=== PATIENT | male | born 1940 | race Caucasian/White ===

== ENCOUNTER 2016-07-24 10:00 | Inpatient (IN) | payer MEDICARE, OTHER ==
[~2016-07-24] VITALS: Ht 182.9 cm; Wt 159.3 kg
[~2016-07-24 10:00] MED LIST: ASPIRIN 81 MG CHEW TAB PO SCH
[2016-07-24] MEDS ORDERED: ACETAMINOPHEN 325 MG TAB PO PRN (14:25)
[2016-07-24] MEDS ORDERED: GLUCAGON 1 MG VIAL IM PRN ×2 (14:30→17:20)
[2016-07-24] MEDS ORDERED: DEXTROSE 50% SYRINGE 50 ML IV PRN ×2 (14:30→17:20)
[2016-07-24 14:45] VITALS: Ht 182.9 cm; Wt 159.3 kg
[2016-07-24] MEDS: DUONEB INH SCH ×3 (14:56→23:00)
[2016-07-24 15:01] VITALS: RESP 18
[2016-07-24 15:54] VITALS: BP_SYST 125; BP_SYST 139; RESP 18; TEMP 97.9
[2016-07-24] MEDS: AZITHROMYCIN 500 MG in SODIUM CHLORIDE 0.9% 250 ML IV SCH (16:24)
[2016-07-24] MEDS ORDERED: TUSSIONEX SUSP UDC PO PRN (17:20)
[2016-07-24] MEDS: CITALOPRAM 20 MG TAB PO SCH (17:22)
[2016-07-24] MEDS: FAMOTIDINE 20 MG TAB PO SCH (17:23)
[2016-07-24] MEDS: METOPROLOL XL 50 MG TAB PO SCH (17:24)
[2016-07-24] MEDS: CEFTRIAXONE 1 GM in SODIUM CHLORIDE 0.9% 50 ML IV SCH (17:55)
[2016-07-24] MEDS: NITROGLYCERIN 2% OINT 1 INCH PKT TOPICAL SCH ×2 (17:56→23:35)
[2016-07-24] MEDS: METHYLPRED SOD SUCC 125 MG/2 ML VIAL IV SCH ×2 (17:56→23:36)
[2016-07-24] MEDS: NEB-BUDESONIDE 0.5 MG INH SCH (18:47)
[2016-07-24] MEDS: NEB-BROVANA 15 MCG/2 ML INH SCH (18:47)
[2016-07-24 19:01] VITALS: BP_SYST 133; RESP 20; TEMP 98
[2016-07-24] MEDS: MAG OXIDE 400 MG TAB PO SCH (20:14)
[2016-07-24] MEDS: Atorvastatin 20 MG TAB PO SCH (20:14)
[2016-07-24] MEDS: KCL CR 10 MEQ TAB PO SCH (20:14)
[2016-07-24] MEDS: PREGABALIN 100 MG CAPSULE PO SCH (20:14)
[2016-07-24] MEDS: LEVEMIR INSULIN SUBQ SCH (20:15)
[2016-07-24 23:10] VITALS: BP_SYST 134; RESP 21; TEMP 98
[2016-07-25] VITALS (8 sets, daily range): BP systolic 98–171; RESP 18–20; TEMP 97.2–98.2
[2016-07-25] MEDS: ACETAMINOPHEN 325 MG TAB PO PRN ×2 (03:47→23:44)
[2016-07-25] MEDS ORDERED: SALINE FLUSH 10 ML FLUSH PRN (05:35)
[2016-07-25] MEDS: NITROGLYCERIN 2% OINT 1 INCH PKT TOPICAL SCH ×3 (05:43→17:09)
[2016-07-25] MEDS: METHYLPRED SOD SUCC 125 MG/2 ML VIAL IV SCH ×3 (05:43→17:09)
[2016-07-25] MEDS: SODIUM CHLORIDE 0.9% FLUSH BAG 500 ML IV SCH (05:44)
[2016-07-25] MEDS: NEB-BUDESONIDE 0.5 MG INH SCH ×2 (06:32→18:12)
[2016-07-25] MEDS: NEB-BROVANA 15 MCG/2 ML INH SCH ×2 (06:32→18:12)
[2016-07-25] MEDS: DUONEB INH SCH ×5 (06:32→23:37)
[2016-07-25] MEDS ORDERED: TORSEMIDE 20 MG TAB PO SCH (09:00)
[2016-07-25] MEDS: CEFTRIAXONE 1 GM in SODIUM CHLORIDE 0.9% 50 ML IV SCH (09:03)
[2016-07-25] MEDS: FAMOTIDINE 20 MG TAB PO SCH (09:03)
[2016-07-25] MEDS: SALINE FLUSH 10 ML FLUSH SCH ×2 (09:03→20:00)
[2016-07-25] MEDS: KCL CR 10 MEQ TAB PO SCH ×2 (09:03→21:03)
[2016-07-25] MEDS: PREGABALIN 100 MG CAPSULE PO SCH ×2 (09:03→21:03)
[2016-07-25] MEDS: NYSTATIN 500,000 UNITS/5 ML SUSP SWISH.SWAL SCH ×4 (09:03→21:02)
[2016-07-25] MEDS: MAG OXIDE 400 MG TAB PO SCH ×2 (09:03→21:03)
[2016-07-25] MEDS: CITALOPRAM 20 MG TAB PO SCH (09:04)
[2016-07-25] MEDS: METOPROLOL XL 50 MG TAB PO SCH (09:04)
[2016-07-25] MEDS: ASPIRIN EC 81 MG TAB PO SCH (09:14)
[2016-07-25] MEDS: AZITHROMYCIN 500 MG in SODIUM CHLORIDE 0.9% 250 ML IV SCH (09:50)
[2016-07-25] MEDS: Atorvastatin 20 MG TAB PO SCH (21:03)
[2016-07-25] MEDS: LEVEMIR INSULIN SUBQ SCH (21:14)
[2016-07-26] VITALS (9 sets, daily range): BP systolic 125–171; RESP 16–20; TEMP 97.3–98.1
[2016-07-26] MEDS: SODIUM CHLORIDE 0.9% FLUSH BAG 500 ML IV SCH (05:37)
[2016-07-26] MEDS: NITROGLYCERIN 2% OINT 1 INCH PKT TOPICAL SCH ×2 (06:38)
[2016-07-26] MEDS: METHYLPRED SOD SUCC 125 MG/2 ML VIAL IV SCH ×3 (06:38→21:41)
[2016-07-26] MEDS: NEB-BROVANA 15 MCG/2 ML INH SCH ×2 (07:03→17:08)
[2016-07-26] MEDS: NEB-BUDESONIDE 0.5 MG INH SCH ×2 (07:03→17:08)
[2016-07-26] MEDS: DUONEB INH SCH ×5 (07:03→23:25)
[2016-07-26] MEDS: SALINE FLUSH 10 ML FLUSH SCH ×2 (09:06→21:40)
[2016-07-26] MEDS: METOPROLOL XL 50 MG TAB PO SCH ×2 (09:07→21:41)
[2016-07-26] MEDS: NYSTATIN 500,000 UNITS/5 ML SUSP SWISH.SWAL SCH ×4 (09:07→21:49)
[2016-07-26] MEDS: MAG OXIDE 400 MG TAB PO SCH ×2 (09:07→21:41)
[2016-07-26] MEDS: KCL CR 10 MEQ TAB PO SCH ×2 (09:07→21:42)
[2016-07-26] MEDS: PREGABALIN 100 MG CAPSULE PO SCH ×2 (09:07→21:42)
[2016-07-26] MEDS: CITALOPRAM 20 MG TAB PO SCH (09:07)
[2016-07-26] MEDS: FAMOTIDINE 20 MG TAB PO SCH (09:07)
[2016-07-26] MEDS: CEFTRIAXONE 1 GM in SODIUM CHLORIDE 0.9% 50 ML IV SCH (09:08)
[2016-07-26] MEDS: ASPIRIN EC 81 MG TAB PO SCH (09:08)
[2016-07-26] MEDS: TORSEMIDE 20 MG TAB PO SCH ×2 (09:08→21:42)
[2016-07-26] MEDS ORDERED: MISSING DOSE XX ONE (09:20)
[2016-07-26] MEDS: AZITHROMYCIN 500 MG in SODIUM CHLORIDE 0.9% 250 ML IV SCH (10:20)
[2016-07-26] MEDS: ISOSORBIDE MONO 60 MG TAB PO SCH (10:20)
[2016-07-26] MEDS: WARFARIN 4 MG TAB PO SCH (16:30)
[2016-07-26] MEDS ORDERED: LEVEMIR INSULIN SUBQ SCH (21:00)
[2016-07-26] MEDS: Atorvastatin 20 MG TAB PO SCH (21:42)
[2016-07-27 03:08] VITALS: BP_SYST 152; TEMP 98.3
[2016-07-27 03:09] VITALS: RESP 20
[2016-07-27] MEDS: ACETAMINOPHEN 325 MG TAB PO PRN (03:17)
[2016-07-27] MEDS: SODIUM CHLORIDE 0.9% FLUSH BAG 500 ML IV SCH (05:41)
[2016-07-27 07:14] VITALS: BP_SYST 157; RESP 18; TEMP 98.3
[2016-07-27] MEDS: DUONEB INH SCH ×3 (07:27→16:24)
[2016-07-27] MEDS: NEB-BUDESONIDE 0.5 MG INH SCH (07:27)
[2016-07-27] MEDS: NEB-BROVANA 15 MCG/2 ML INH SCH (07:27)
[2016-07-27] MEDS: SALINE FLUSH 10 ML FLUSH SCH (08:56)
[2016-07-27] MEDS: FAMOTIDINE 20 MG TAB PO SCH (08:56)
[2016-07-27] MEDS: ASPIRIN EC 81 MG TAB PO SCH (08:57)
[2016-07-27] MEDS: ISOSORBIDE MONO 60 MG TAB PO SCH (08:57)
[2016-07-27] MEDS: MAG OXIDE 400 MG TAB PO SCH (08:57)
[2016-07-27] MEDS: PREGABALIN 100 MG CAPSULE PO SCH (08:57)
[2016-07-27] MEDS: METOPROLOL XL 50 MG TAB PO SCH (08:57)
[2016-07-27] MEDS: TORSEMIDE 20 MG TAB PO SCH (08:57)
[2016-07-27] MEDS: KCL CR 10 MEQ TAB PO SCH (08:57)
[2016-07-27] MEDS: NYSTATIN 500,000 UNITS/5 ML SUSP SWISH.SWAL SCH ×3 (08:57→16:51)
[2016-07-27] MEDS: CITALOPRAM 20 MG TAB PO SCH (08:57)
[2016-07-27] MEDS: CEFTRIAXONE 1 GM in SODIUM CHLORIDE 0.9% 50 ML IV SCH (08:58)
[2016-07-27] MEDS: METHYLPRED SOD SUCC 125 MG/2 ML VIAL IV SCH (08:58)
[2016-07-27 10:44] VITALS: BP_SYST 136; RESP 20; TEMP 98.1
[2016-07-27 14:42] VITALS: BP_SYST 147; RESP 20; TEMP 98.6
[2016-07-27 14:45] VITALS: BP_SYST 147; RESP 20; TEMP 98.6
[2016-07-27] MEDS: WARFARIN 4 MG TAB PO SCH (15:59)
== END 2016-07-27 18:22 | disposition home health service (06) | DRG 191 ==
LOC: ENRESERVTM → ENRESERVDT → ER 10:00 → EMR 12:48 → ENPENDDIS 12:48 → PCU2 14:19 → MC2 07-25 15:16 → PCU2 07-25 15:20 → 3NT 07-25 16:31
PROVIDERS: ADMIT Internal Medicine; ATTEND Internal Medicine
DX: J44.1 Chronic obstructive pulmonary disease with (acute) exacerbation (principal); I50.42 Chronic combined systolic (congestive) and diastolic (congestive) heart failure; Z68.42 Body mass index [BMI] 45.0-49.9, adult; I51.7 Cardiomegaly; E11.649 Type 2 diabetes mellitus with hypoglycemia without coma; Z79.4 Long term (current) use of insulin; Z79.82 Long term (current) use of aspirin; I25.10 Atherosclerotic heart disease of native coronary artery without angina pectoris; Z95.1 Presence of aortocoronary bypass graft; Z79.01 Long term (current) use of anticoagulants; I11.0 Hypertensive heart disease with heart failure; I48.2 Chronic atrial fibrillation; E66.01 Morbid (severe) obesity due to excess calories; F41.9 Anxiety disorder, unspecified; F32.9 Major depressive disorder, single episode, unspecified
CPT/HCPCS: 36415; 71010; 80048; 80053; 82553; 82947; 83735; 83880; 84484; 85025; 85610; 85730; 93005; 94640; 94667; 94668; 94799

== ENCOUNTER 2016-08-07 11:11 | Inpatient (IN) | payer MEDICARE, OTHER ==
[~2016-08-07] VITALS: Ht 188 cm; Wt 137.4 kg
[2016-08-07] MEDS ORDERED: Furosemide 40 MG/4 ML VIAL ONE (11:50)
[2016-08-07] MEDS ORDERED: GLUCAGON 1 MG VIAL IM PRN (13:30)
[2016-08-07] MEDS ORDERED: DEXTROSE 50% SYRINGE 50 ML IV PRN (13:30)
[2016-08-07] MEDS: METHYLPRED SOD SUCC 125 MG/2 ML VIAL IV SCH ×3 (13:30→23:55)
[2016-08-07 15:17] VITALS: RESP 18
[2016-08-07] MEDS: DUONEB INH SCH ×3 (15:19→22:59)
[2016-08-07] MEDS ORDERED: WARFARIN 4 MG TAB PO SCH (16:00)
[2016-08-07 16:01] VITALS: BP_SYST 114; RESP 20; TEMP 97.8
[2016-08-07] MEDS: FAMOTIDINE 20 MG TAB PO SCH (16:08)
[2016-08-07] MEDS: CITALOPRAM 20 MG TAB PO SCH (16:10)
[2016-08-07] MEDS: LISINOPRIL 10 MG TAB PO SCH (16:10)
[2016-08-07] MEDS: ASPIRIN EC 81 MG TAB PO SCH (16:10)
[2016-08-07] MEDS: ISOSORBIDE MONO 60 MG TAB PO SCH (16:11)
[2016-08-07] MEDS: Furosemide 100 MG/10 ML VIAL IV SCH ×2 (16:20→23:55)
[2016-08-07 16:52] VITALS: Ht 188 cm; Wt 137.4 kg
[2016-08-07] MEDS: NEB-BROVANA 15 MCG/2 ML INH SCH (18:12)
[2016-08-07 19:25] VITALS: BP_SYST 93; RESP 20; TEMP 99.2
[2016-08-07] MEDS ORDERED: KCL CR 10 MEQ TAB PO SCH (21:00)
[2016-08-07] MEDS: LEVEMIR INSULIN SUBQ SCH (21:00)
[2016-08-07] MEDS: Atorvastatin 20 MG TAB PO SCH (21:05)
[2016-08-07] MEDS: MAG OXIDE 400 MG TAB PO SCH (21:05)
[2016-08-07] MEDS: METOPROLOL XL 50 MG TAB PO SCH (21:05)
[2016-08-07] MEDS ORDERED: SALINE FLUSH 10 ML FLUSH PRN (21:15)
[2016-08-07 23:20] VITALS: BP_SYST 96; RESP 20; TEMP 98.3
[2016-08-08 03:46] VITALS: BP_SYST 105; RESP 20; TEMP 98.1
[2016-08-08] MEDS: SODIUM CHLORIDE 0.9% FLUSH BAG 500 ML IV SCH (05:41)
[2016-08-08] MEDS: NEB-BROVANA 15 MCG/2 ML INH SCH ×2 (06:24→18:33)
[2016-08-08] MEDS: DUONEB INH SCH ×4 (06:24→23:09)
[2016-08-08] MEDS: METHYLPRED SOD SUCC 125 MG/2 ML VIAL IV SCH (06:42)
[2016-08-08 07:21] VITALS: BP_SYST 122; RESP 16; TEMP 98.2
[2016-08-08] MEDS: Furosemide 100 MG/10 ML VIAL IV SCH ×2 (08:43→18:48)
[2016-08-08] MEDS: SALINE FLUSH 10 ML FLUSH SCH ×2 (08:43→21:02)
[2016-08-08] MEDS: MAG OXIDE 400 MG TAB PO SCH ×2 (08:44→20:55)
[2016-08-08] MEDS: CITALOPRAM 20 MG TAB PO SCH (08:44)
[2016-08-08] MEDS: ISOSORBIDE MONO 60 MG TAB PO SCH (08:44)
[2016-08-08] MEDS: ASPIRIN EC 81 MG TAB PO SCH (08:44)
[2016-08-08] MEDS: METOPROLOL XL 50 MG TAB PO SCH ×2 (08:44→20:55)
[2016-08-08] MEDS: LISINOPRIL 10 MG TAB PO SCH (08:44)
[2016-08-08] MEDS: FAMOTIDINE 20 MG TAB PO SCH (08:44)
[2016-08-08] MEDS: ACETAMINOPHEN 325 MG TAB PO PRN (08:50)
[2016-08-08] MEDS: TUSSIONEX SUSP UDC PO SCH ×2 (11:12→20:59)
[2016-08-08] MEDS: NYSTATIN 500,000 UNITS/5 ML SUSP SWISH.SWAL SCH ×4 (11:12→21:01)
[2016-08-08 11:13] VITALS: BP_SYST 121; RESP 16; TEMP 98
[2016-08-08 15:20] VITALS: BP_SYST 117; RESP 16; TEMP 97.1
[2016-08-08 19:39] VITALS: BP_SYST 120; RESP 20; TEMP 98.1
[2016-08-08] MEDS: Atorvastatin 20 MG TAB PO SCH (20:55)
[2016-08-08] MEDS ORDERED: METHYLPRED SOD SUCC 125 MG/2 ML VIAL IV SCH (21:00)
[2016-08-08] MEDS: LEVEMIR INSULIN SUBQ SCH (21:24)
[2016-08-09] VITALS (7 sets, daily range): BP systolic 118–141; RESP 16–20; TEMP 97.1–98.3
[2016-08-09] MEDS: Furosemide 100 MG/10 ML VIAL IV SCH ×4 (00:23→23:30)
[2016-08-09] MEDS: SODIUM CHLORIDE 0.9% FLUSH BAG 500 ML IV SCH (05:19)
[2016-08-09] MEDS: NEB-BROVANA 15 MCG/2 ML INH SCH ×2 (06:45→19:13)
[2016-08-09] MEDS: DUONEB INH SCH ×4 (06:45→23:40)
[2016-08-09] MEDS: TUSSIONEX SUSP UDC PO SCH ×2 (09:01→20:33)
[2016-08-09] MEDS: CITALOPRAM 20 MG TAB PO SCH (09:02)
[2016-08-09] MEDS: ISOSORBIDE MONO 60 MG TAB PO SCH (09:02)
[2016-08-09] MEDS: NYSTATIN 500,000 UNITS/5 ML SUSP SWISH.SWAL SCH ×4 (09:02→20:33)
[2016-08-09] MEDS: FAMOTIDINE 20 MG TAB PO SCH (09:02)
[2016-08-09] MEDS: ASPIRIN EC 81 MG TAB PO SCH (09:02)
[2016-08-09] MEDS: METOPROLOL XL 50 MG TAB PO SCH ×2 (09:03→20:33)
[2016-08-09] MEDS: METOLAZONE 5 MG TAB PO SCH (09:03)
[2016-08-09] MEDS: SALINE FLUSH 10 ML FLUSH SCH ×2 (09:03→23:31)
[2016-08-09] MEDS: LISINOPRIL 10 MG TAB PO SCH (09:03)
[2016-08-09] MEDS: MAG OXIDE 400 MG TAB PO SCH ×2 (09:03→20:33)
[2016-08-09] MEDS: Atorvastatin 20 MG TAB PO SCH (20:33)
[2016-08-09] MEDS: LEVEMIR INSULIN SUBQ SCH (20:34)
[2016-08-10] MEDS: SODIUM CHLORIDE 0.9% FLUSH BAG 500 ML IV SCH (02:53)
[2016-08-10 04:03] VITALS: BP_SYST 111; RESP 20; TEMP 98
[2016-08-10 07:39] VITALS: BP_SYST 144; RESP 20; TEMP 97.2
[2016-08-10] MEDS: NEB-BROVANA 15 MCG/2 ML INH SCH ×2 (07:51→18:29)
[2016-08-10] MEDS: DUONEB INH SCH ×4 (07:51→22:44)
[2016-08-10] MEDS ORDERED: MISSING DOSE XX ONE (08:25)
[2016-08-10] MEDS: SALINE FLUSH 10 ML FLUSH SCH ×2 (08:29→20:33)
[2016-08-10] MEDS: METOLAZONE 5 MG TAB PO SCH (08:29)
[2016-08-10] MEDS: Furosemide 100 MG/10 ML VIAL IV SCH ×2 (08:29→15:24)
[2016-08-10] MEDS: ASPIRIN EC 81 MG TAB PO SCH (08:29)
[2016-08-10] MEDS: METOPROLOL XL 50 MG TAB PO SCH ×2 (08:30→20:32)
[2016-08-10] MEDS: MAG OXIDE 400 MG TAB PO SCH ×2 (08:30→20:32)
[2016-08-10] MEDS: CITALOPRAM 20 MG TAB PO SCH (08:30)
[2016-08-10] MEDS: FAMOTIDINE 20 MG TAB PO SCH (08:30)
[2016-08-10] MEDS: ISOSORBIDE MONO 60 MG TAB PO SCH (08:30)
[2016-08-10] MEDS: NYSTATIN 500,000 UNITS/5 ML SUSP SWISH.SWAL SCH ×4 (08:30→20:32)
[2016-08-10] MEDS: LISINOPRIL 10 MG TAB PO SCH (08:30)
[2016-08-10] MEDS: TUSSIONEX SUSP UDC PO SCH ×2 (08:33→20:33)
[2016-08-10] MEDS: KCL CR 10 MEQ TAB PO SCH ×3 (08:33→20:31)
[2016-08-10 11:15] VITALS: BP_SYST 121; RESP 20; TEMP 97.8
[2016-08-10 15:35] VITALS: BP_SYST 105; RESP 20; TEMP 97.3
[2016-08-10 19:34] VITALS: BP_SYST 106; RESP 20; TEMP 98.7
[2016-08-10] MEDS: Atorvastatin 20 MG TAB PO SCH (20:32)
[2016-08-10] MEDS: LEVEMIR INSULIN SUBQ SCH (20:56)
[2016-08-10 23:01] VITALS: BP_SYST 142; RESP 22; TEMP 97.5
[2016-08-11] MEDS: Furosemide 100 MG/10 ML VIAL IV SCH ×3 (01:00→17:38)
[2016-08-11] MEDS: ACETAMINOPHEN 325 MG TAB PO PRN ×2 (04:23→20:54)
[2016-08-11 04:47] VITALS: BP_SYST 129; RESP 20; TEMP 98.5
[2016-08-11] MEDS: SODIUM CHLORIDE 0.9% FLUSH BAG 500 ML IV SCH (06:00)
[2016-08-11] MEDS: NEB-BROVANA 15 MCG/2 ML INH SCH ×2 (06:52→19:44)
[2016-08-11] MEDS: DUONEB INH SCH ×4 (06:52→23:06)
[2016-08-11 07:17] VITALS: BP_SYST 141; RESP 20; TEMP 98
[2016-08-11] MEDS: SALINE FLUSH 10 ML FLUSH SCH ×2 (09:11→22:44)
[2016-08-11] MEDS: NYSTATIN 500,000 UNITS/5 ML SUSP SWISH.SWAL SCH ×4 (09:12→22:43)
[2016-08-11] MEDS: LISINOPRIL 10 MG TAB PO SCH (09:13)
[2016-08-11] MEDS: METOLAZONE 5 MG TAB PO SCH (09:13)
[2016-08-11] MEDS: CITALOPRAM 20 MG TAB PO SCH (09:13)
[2016-08-11] MEDS: ISOSORBIDE MONO 60 MG TAB PO SCH (09:13)
[2016-08-11] MEDS: METOPROLOL XL 50 MG TAB PO SCH ×2 (09:13→20:35)
[2016-08-11] MEDS: ASPIRIN EC 81 MG TAB PO SCH (09:14)
[2016-08-11] MEDS: FAMOTIDINE 20 MG TAB PO SCH (09:14)
[2016-08-11] MEDS: MAG OXIDE 400 MG TAB PO SCH ×2 (09:14→20:35)
[2016-08-11] MEDS: TUSSIONEX SUSP UDC PO SCH ×2 (09:17→20:41)
[2016-08-11] MEDS: KCL CR 20 MEQ TAB PO SCH ×3 (09:18→22:44)
[2016-08-11 11:00] VITALS: BP_SYST 115; RESP 20
[2016-08-11] MEDS: GUAIFENESIN 10 ML UDC PO SCH ×3 (11:08→22:43)
[2016-08-11] MEDS: BENZONATATE 100 MG CAP PO SCH ×3 (11:08→22:44)
[2016-08-11 14:59] VITALS: BP_SYST 106; RESP 20; TEMP 97.9
[2016-08-11] MEDS: WARFARIN 4 MG TAB PO SCH (17:40)
[2016-08-11 19:25] VITALS: BP_SYST 115; RESP 20; TEMP 98.2
[2016-08-11] MEDS: Atorvastatin 20 MG TAB PO SCH (20:34)
[2016-08-11] MEDS: LEVEMIR INSULIN SUBQ SCH (22:43)
[2016-08-12] VITALS (8 sets, daily range): BP systolic 91–124; RESP 18–24; TEMP 97.5–98.3
[2016-08-12] MEDS: Furosemide 100 MG/10 ML VIAL IV SCH ×4 (00:44→16:34)
[2016-08-12] MEDS: SODIUM CHLORIDE 0.9% FLUSH BAG 500 ML IV SCH (05:37)
[2016-08-12] MEDS: DUONEB INH SCH ×4 (06:49→22:43)
[2016-08-12] MEDS: NEB-BROVANA 15 MCG/2 ML INH SCH ×2 (06:49→18:31)
[2016-08-12] MEDS: SALINE FLUSH 10 ML FLUSH SCH ×2 (08:24→20:24)
[2016-08-12] MEDS: TUSSIONEX SUSP UDC PO SCH ×2 (08:25→20:24)
[2016-08-12] MEDS: GUAIFENESIN 10 ML UDC PO SCH ×3 (08:25→20:24)
[2016-08-12] MEDS: KCL CR 20 MEQ TAB PO SCH ×3 (08:25→20:23)
[2016-08-12] MEDS: METOPROLOL XL 50 MG TAB PO SCH ×2 (08:25→20:23)
[2016-08-12] MEDS: NYSTATIN 500,000 UNITS/5 ML SUSP SWISH.SWAL SCH ×4 (08:25→20:24)
[2016-08-12] MEDS: ISOSORBIDE MONO 60 MG TAB PO SCH (08:26)
[2016-08-12] MEDS: METOLAZONE 5 MG TAB PO SCH (08:26)
[2016-08-12] MEDS: BENZONATATE 100 MG CAP PO SCH ×3 (08:26→20:23)
[2016-08-12] MEDS: FAMOTIDINE 20 MG TAB PO SCH (08:26)
[2016-08-12] MEDS: ASPIRIN EC 81 MG TAB PO SCH (08:26)
[2016-08-12] MEDS: LISINOPRIL 10 MG TAB PO SCH (08:26)
[2016-08-12] MEDS: MAG OXIDE 400 MG TAB PO SCH ×2 (08:26→20:23)
[2016-08-12] MEDS: CITALOPRAM 20 MG TAB PO SCH (08:26)
[2016-08-12] MEDS: ACETAMINOPHEN 325 MG TAB PO PRN ×2 (10:18→18:04)
[2016-08-12] MEDS ORDERED: MISSING DOSE XX ONE (13:30)
[2016-08-12] MEDS: WARFARIN 4 MG TAB PO SCH (16:33)
[2016-08-12] MEDS: Atorvastatin 20 MG TAB PO SCH (20:23)
[2016-08-12] MEDS: LEVEMIR INSULIN SUBQ SCH (20:40)
[2016-08-13 00:16] VITALS: BP_SYST 139
[2016-08-13 03:09] VITALS: BP_SYST 108; RESP 20; TEMP 98.3
[2016-08-13] MEDS: DUONEB INH SCH ×4 (06:45→22:50)
[2016-08-13] MEDS: NEB-BROVANA 15 MCG/2 ML INH SCH ×2 (06:45→18:29)
[2016-08-13 07:20] VITALS: BP_SYST 116; RESP 18; TEMP 98
[2016-08-13] MEDS: GUAIFENESIN 10 ML UDC PO SCH ×3 (09:11→20:37)
[2016-08-13] MEDS: NYSTATIN 500,000 UNITS/5 ML SUSP SWISH.SWAL SCH ×4 (09:11→20:37)
[2016-08-13] MEDS: Furosemide 100 MG/10 ML VIAL IV SCH ×2 (09:11→13:31)
[2016-08-13] MEDS: METOPROLOL XL 50 MG TAB PO SCH ×2 (09:12→20:38)
[2016-08-13] MEDS: BENZONATATE 100 MG CAP PO SCH ×3 (09:12→20:37)
[2016-08-13] MEDS: ISOSORBIDE MONO 60 MG TAB PO SCH (09:12)
[2016-08-13] MEDS: CITALOPRAM 20 MG TAB PO SCH (09:13)
[2016-08-13] MEDS: KCL CR 20 MEQ TAB PO SCH ×3 (09:13→20:37)
[2016-08-13] MEDS: LISINOPRIL 10 MG TAB PO SCH (09:13)
[2016-08-13] MEDS: SALINE FLUSH 10 ML FLUSH SCH (09:13)
[2016-08-13] MEDS: ASPIRIN EC 81 MG TAB PO SCH (09:13)
[2016-08-13] MEDS: FAMOTIDINE 20 MG TAB PO SCH (09:13)
[2016-08-13] MEDS: METOLAZONE 5 MG TAB PO SCH (09:13)
[2016-08-13] MEDS: MAG OXIDE 400 MG TAB PO SCH ×2 (09:13→20:37)
[2016-08-13] MEDS: TUSSIONEX SUSP UDC PO SCH ×2 (09:20→20:37)
[2016-08-13] MEDS ORDERED: MISSING DOSE XX ONE (13:30)
[2016-08-13] MEDS: BUMETANIDE 1 MG TAB PO SCH ×2 (13:51→17:07)
[2016-08-13] MEDS: WARFARIN 4 MG TAB PO SCH (17:06)
[2016-08-13 19:30] VITALS: BP_SYST 122; RESP 20; TEMP 97.8
[2016-08-13] MEDS: Atorvastatin 20 MG TAB PO SCH (20:37)
[2016-08-13] MEDS: LEVEMIR INSULIN SUBQ SCH (20:42)
[2016-08-13 23:07] VITALS: BP_SYST 107; RESP 20; TEMP 97.5
[2016-08-13] MEDS: ACETAMINOPHEN 325 MG TAB PO PRN (23:16)
[2016-08-14 03:20] VITALS: BP_SYST 119; RESP 20; TEMP 97.4
[2016-08-14 07:16] VITALS: BP_SYST 110; RESP 18; TEMP 97.9
[2016-08-14] MEDS: DUONEB INH SCH ×4 (07:20→22:51)
[2016-08-14] MEDS: NEB-BROVANA 15 MCG/2 ML INH SCH ×2 (07:20→19:16)
[2016-08-14] MEDS: TUSSIONEX SUSP UDC PO SCH ×2 (09:29→21:21)
[2016-08-14] MEDS: NYSTATIN 500,000 UNITS/5 ML SUSP SWISH.SWAL SCH ×4 (09:29→21:21)
[2016-08-14] MEDS: ISOSORBIDE MONO 60 MG TAB PO SCH (09:30)
[2016-08-14] MEDS: ASPIRIN EC 81 MG TAB PO SCH (09:30)
[2016-08-14] MEDS: KCL CR 20 MEQ TAB PO SCH ×3 (09:30→21:22)
[2016-08-14] MEDS: LISINOPRIL 10 MG TAB PO SCH (09:30)
[2016-08-14] MEDS: METOPROLOL XL 50 MG TAB PO SCH ×2 (09:30→21:22)
[2016-08-14] MEDS: MAG OXIDE 400 MG TAB PO SCH ×2 (09:30→21:21)
[2016-08-14] MEDS: METOLAZONE 5 MG TAB PO SCH (09:30)
[2016-08-14] MEDS: CITALOPRAM 20 MG TAB PO SCH (09:30)
[2016-08-14] MEDS: FAMOTIDINE 20 MG TAB PO SCH (09:30)
[2016-08-14] MEDS: BUMETANIDE 1 MG TAB PO SCH ×2 (09:30→17:17)
[2016-08-14] MEDS ORDERED: MISSING DOSE XX ONE (09:35)
[2016-08-14] MEDS: BENZONATATE 100 MG CAP PO SCH ×3 (10:30→21:21)
[2016-08-14] MEDS: GUAIFENESIN 10 ML UDC PO SCH ×3 (10:30→21:21)
[2016-08-14 15:05] VITALS: BP_SYST 112; RESP 16; TEMP 98.1
[2016-08-14] MEDS: WARFARIN 4 MG TAB PO SCH (17:17)
[2016-08-14 19:32] VITALS: BP_SYST 109; RESP 18; TEMP 98
[2016-08-14] MEDS: Atorvastatin 20 MG TAB PO SCH (21:22)
[2016-08-14] MEDS: ACETAMINOPHEN 325 MG TAB PO PRN (21:26)
[2016-08-14] MEDS: LEVEMIR INSULIN SUBQ SCH (21:31)
[2016-08-14 23:03] VITALS: BP_SYST 121; RESP 20; TEMP 97
[2016-08-15 04:31] VITALS: BP_SYST 113; RESP 20; TEMP 97.8
[2016-08-15] MEDS: NEB-BROVANA 15 MCG/2 ML INH SCH ×2 (07:01→18:41)
[2016-08-15] MEDS: DUONEB INH SCH ×4 (07:01→22:31)
[2016-08-15 07:29] VITALS: BP_SYST 121; RESP 16; TEMP 97.7
[2016-08-15] MEDS ORDERED: MISSING DOSE XX ONE ×2 (09:40→10:10)
[2016-08-15] MEDS: BUMETANIDE 1 MG TAB PO SCH ×2 (10:53→17:20)
[2016-08-15] MEDS: TUSSIONEX SUSP UDC PO SCH ×2 (10:53→20:15)
[2016-08-15] MEDS: CITALOPRAM 20 MG TAB PO SCH (10:54)
[2016-08-15] MEDS: LISINOPRIL 10 MG TAB PO SCH (10:54)
[2016-08-15] MEDS: MAG OXIDE 400 MG TAB PO SCH ×2 (10:54→20:16)
[2016-08-15] MEDS: FAMOTIDINE 20 MG TAB PO SCH (10:54)
[2016-08-15] MEDS: BENZONATATE 100 MG CAP PO SCH ×3 (10:54→20:16)
[2016-08-15] MEDS: KCL CR 20 MEQ TAB PO SCH ×3 (10:54→20:16)
[2016-08-15] MEDS: ASPIRIN EC 81 MG TAB PO SCH (10:54)
[2016-08-15] MEDS: METOPROLOL XL 50 MG TAB PO SCH ×2 (10:54→20:16)
[2016-08-15] MEDS: ISOSORBIDE MONO 60 MG TAB PO SCH (10:55)
[2016-08-15] MEDS: GUAIFENESIN 10 ML UDC PO SCH ×3 (10:55→20:15)
[2016-08-15] MEDS: METOLAZONE 5 MG TAB PO SCH (10:55)
[2016-08-15] MEDS: ACETAMINOPHEN 325 MG TAB PO PRN ×2 (10:56→20:38)
[2016-08-15 11:33] VITALS: BP_SYST 112; RESP 16; TEMP 97.8
[2016-08-15 15:07] VITALS: BP_SYST 108; RESP 16; TEMP 97.4
[2016-08-15] MEDS: WARFARIN 4 MG TAB PO SCH (17:21)
[2016-08-15 19:19] VITALS: BP_SYST 121; RESP 16; TEMP 97.8
[2016-08-15] MEDS: Atorvastatin 20 MG TAB PO SCH (20:16)
[2016-08-15] MEDS: LEVEMIR INSULIN SUBQ SCH (20:38)
[2016-08-15 23:53] VITALS: BP_SYST 110; RESP 18; TEMP 97.8
[2016-08-16] VITALS (8 sets, daily range): BP systolic 98–144; RESP 16–20; TEMP 97.4–98.2
[2016-08-16] MEDS: DUONEB INH SCH ×2 (06:35→15:23)
[2016-08-16] MEDS: NEB-BROVANA 15 MCG/2 ML INH SCH (06:35)
[2016-08-16] MEDS: BUMETANIDE 1 MG TAB PO SCH ×2 (09:33→16:11)
[2016-08-16] MEDS: LISINOPRIL 10 MG TAB PO SCH (09:33)
[2016-08-16] MEDS: ISOSORBIDE MONO 60 MG TAB PO SCH (09:34)
[2016-08-16] MEDS: METOPROLOL XL 50 MG TAB PO SCH (09:34)
[2016-08-16] MEDS: ASPIRIN EC 81 MG TAB PO SCH (09:34)
[2016-08-16] MEDS: CITALOPRAM 20 MG TAB PO SCH (09:34)
[2016-08-16] MEDS: KCL CR 20 MEQ TAB PO SCH ×2 (09:34→16:10)
[2016-08-16] MEDS: MAG OXIDE 400 MG TAB PO SCH (09:34)
[2016-08-16] MEDS: BENZONATATE 100 MG CAP PO SCH ×2 (09:34→16:11)
[2016-08-16] MEDS: METOLAZONE 5 MG TAB PO SCH (09:34)
[2016-08-16] MEDS: FAMOTIDINE 20 MG TAB PO SCH (09:34)
[2016-08-16] MEDS: ACETAMINOPHEN 325 MG TAB PO PRN ×2 (09:35→14:27)
[2016-08-16] MEDS: TUSSIONEX SUSP UDC PO SCH (09:35)
[2016-08-16] MEDS: GUAIFENESIN 10 ML UDC PO SCH ×2 (09:35→16:00)
[2016-08-16] MEDS: WARFARIN 4 MG TAB PO SCH (16:11)
== END 2016-08-16 17:59 | disposition home health service (06) | DRG 291 ==
LOC: ENRESERVDT → ENRESERVTM → ER 11:11 → ENPENDDIS 13:20 → EMR 13:20 → 4NT 14:49
PROVIDERS: ADMIT Internal Medicine; ATTEND Internal Medicine
DX: I11.0 Hypertensive heart disease with heart failure (principal); J96.00 Acute respiratory failure, unspecified whether with hypoxia or hypercapnia; I48.2 Chronic atrial fibrillation; E11.9 Type 2 diabetes mellitus without complications; G62.9 Polyneuropathy, unspecified; E66.01 Morbid (severe) obesity due to excess calories; F32.9 Major depressive disorder, single episode, unspecified; F41.9 Anxiety disorder, unspecified; I50.31 Acute diastolic (congestive) heart failure; R26.9 Unspecified abnormalities of gait and mobility; M13.819 Other specified arthritis, unspecified shoulder; J45.909 Unspecified asthma, uncomplicated; Z68.38 Body mass index [BMI] 38.0-38.9, adult
CPT/HCPCS: 36415; 71010; 80048; 80053; 82553; 82947; 83880; 84484; 85025; 85610; 85730; 93005; 94640; 94664; 94799; 96374